=== PATIENT | female | born 1985 | race Two or more races ===

== ENCOUNTER 2022-02-21 20:25 | Emergency (ER) | payer OTHER ==
[~2022-02-21] VITALS: Ht 162.6 cm; Wt 59.9 kg
[2022-02-22] MEDS ORDERED: PEPCID AC20 MG PO (00:02)
== END 2022-02-22 00:16 | disposition home or self-care (01) ==
LOC: ER 20:25
DX: K30 Functional dyspepsia (principal); K21.9 Gastro-esophageal reflux disease without esophagitis; Z91.013 Allergy to seafood